=== PATIENT | female | born 1950 | race Caucasian/White ===

== ENCOUNTER 2021-12-21 05:40 | Emergency (ER) | payer OTHER, MEDICARE ==
[2021-12-21 06:12] VITALS: RESP 16; BMI 25.6
[2021-12-21] MEDS ORDERED: SODIUM CHLORIDE 0.9% 500 ML INFUS.BAG IV ONE (06:47)
[2021-12-21 08:16] LABS: ALBUMIN 4.3 g/dl (3.4-5.0); BILIRUBIN,TOTAL 1.7 mg/dl (0.2-1); CALCIUM 9.7 mg/dl (8.5-10); TOT PROT 7.5 g/dl (6.4-8.2)
[2021-12-21] MEDS ORDERED: LACTATED RINGERS SOLUTION 1,000 ML/1,000 ML INFUS.BAG IV STA (08:17)
[2021-12-21 08:20] LABS: HEMATOCRIT 47.1 % (32.4-45.2); HEMOGLOBIN 15.5 G/dL (10.7-15.3); MCHC 32.9 g/dl (32.0-36.0); MEAN CELL VOLUME 85.3 fl (80-96); MEAN PLT VOLUME 8.8 fl (7.5-11.1); PLATELET COUNT 293.6 10^3/uL (134-434); RBC 5.52 10^6/uL (3.60-5.2); RDW 13.7 % (11.6-15.6); WHITE BLOOD COUNT 17.8 10^3/uL (4.0-10.8)
[2021-12-21] MEDS ORDERED: ONDANSETRON 4 MG/2 ML VIAL IVPUSH ONE (08:57)
[2021-12-21 09:47] VITALS: BP 136/70; PULSE 81; TEMP 99.4
[2021-12-21 10:34] LABS: PLATELET ESTIMATE ADEQUATE
== END 2021-12-21 10:23 | disposition home or self-care (01) ==
LOC: FER 05:40
PROC: 3E033NZ Introduction of Analgesics, Hypnotics, Sedatives into Peripheral Vein, Percutaneous Approach (ICD-10-PCS; principal; 2021-12-21)
PROC: 3E0337Z Introduction of Electrolytic and Water Balance Substance into Peripheral Vein, Percutaneous Approach (ICD-10-PCS; 2021-12-21)
DX: A05.9 Bacterial foodborne intoxication, unspecified (principal)
CPT/HCPCS: 36415; 80053; 85025; 93005; 93010; 99284-25